=== PATIENT | male | born 1945 | race African-American/Black ===

== ENCOUNTER 2021-04-13 07:04 | Day surgery (SDC) | payer SELFPAY ==
--- NOTE | 2021-04-13 07:31 | ECHOD_ITS ---
Version 2 Reason For Study: SOB Procedure This was a 2D Doppler, Color Flow transthoracic echocardiogram. Myocardial strain analysis was performed in this exam to aid in the assessment of cardiac function. Exam performed in department. Left Ventricle Normal LV size. Severe concentric left ventricular hypertrophy. Left ventricular systolic function is normal. The estimated ejection fraction is 60 %. No regional wall motion abnormalities noted. Right Ventricle Normal RV size. Normal systolic function. Atria The left atrium is moderately enlarged. Normal right atrium. Mitral Valve Normal mitral valve. Mild-Moderate (1-2+) eccentric mitral valve insufficiency. Tricuspid Valve Normal tricuspid valve. Aortic Valve Normal aortic valve. Trisinus/trileaflet aortic valve. Pulmonic Valve Normal pulmonic valve. Great Vessels Mildly dilated aortic root. The pulmonary artery is normal size. Normal inferior vena cava. Pericardium/Pleural No pericardial effusion. MMode/2D Measurements & Calculations LVIDd: 4.2 cm IVSd: 1.7 cm Ao root diam: 4.1 cm LVIDs: 2.7 cm LVPWd: 1.7 cm RVDd: 3.7 cm FS: 36.4 % LAV(MOD-bp): 95.2 ml LVAd ap4: 29.3 cm2 LVAd ap2: 31.5 cm2 LAV(MOD-bp) Indexed: 38.7 ml/m2 LVLd ap4: 9.7 cm LVLd ap2: 9.9 cm LAV(MOD-sp2): 92.1 ml EDV(MOD-sp4): 76.4 ml EDV(MOD-sp2): 85.1 ml LAV(MOD-sp4): 100.8 ml EDV(sp4-el): 75.3 ml EDV(sp2-el): 85.3 ml LVAs ap4: 18.2 cm2 LVAs ap2: 18.2 cm2 LVLs ap4: 8.8 cm LVLs ap2: 9.1 cm ESV(MOD-sp4): 36.2 ml ESV(MOD-sp2): 32.4 ml ESV(sp4-el): 31.9 ml ESV(sp2-el): 31.0 ml EF(MOD-sp4): 52.7 % EF(MOD-sp2): 61.9 % EF(sp4-el): 57.7 % SV(MOD-sp4): 40.2 ml SV(MOD-sp2): 52.7 ml SV(sp4-el): 43.4 ml LA dimension(2D): 4.3 cm LA A4 area: 28.5 cm2 RA A4 area: 17.1 cm2 Doppler Measurements & Calculations MV E max johnny: 79.0 cm/sec Lat Peak E' Johnny: 6.5 cm/sec Med Peak E' Johnny: 3.9 cm/sec MV A max johnny: 44.6 cm/sec E/E' lat: 12.2 E/E' med: 20.4 MV E/A: 1.8 Ao V2 max: 114.8 cm/sec LV V1 max: 106.0 cm/sec PA V2 max: 96.1 cm/sec Ao max P.3 mmHg LV V1 max P.5 mmHg ECHO/Echo Complete Interpretation Summary Normal LV size. Severe concentric left ventricular hypertrophy. Left ventricular systolic function is normal. The estimated ejection fraction is 60 %. Significant apical sparing noted on the longitudinal strain pattern consistent with amyloid cardiomyopathy Mild-Moderate (1-2+) eccentric mitral valve insufficiency. The left atrium is moderately enlarged. The global longitudinal strain is moderately abnormal. The global longitudinal strain = -14.3% (abnormal). Ordering Physician: Stanislav Lawler Referring Physician: Stanislav Lawler Performed By: Julita May, THOMAS
--- NOTE | 2021-04-13 07:31 | RAD_ITS ---
STUDY: X-RAY CHEST REASON FOR EXAM: Male, 75 years old. Chest pain, shortness of breath, hypertension TECHNIQUE: PA and lateral views of the chest. COMPARISON: None. FINDINGS: Lungs are mildly hyperexpanded with coarsened interstitial lung markings but no airspace consolidation. There is no demonstrated pleural abnormality. Normal size heart. Normal mediastinum and delon. Normal visualized pulmonary arteries. Normal visualized aortic arch and descending thoracic aorta. There are diffuse degenerative changes of the visualized thoracic spine. Normal visualized ribs, clavicles, and shoulders. There is no demonstrated abnormality of the visualized soft tissue structures of the upper abdomen. RAD/Chest PA and Lateral IMPRESSION: No airspace consolidation or pleural effusion. Electronically Signed: Eliecer Gregg MD ([place]) at 16:49 EDT , Service support ,
[2021-04-13 07:37] LABS: Absolute Lymphocyte Count 3.27 X10^3/uL (0.83-4.51); Absolute Neutrophil Count 1.2 X10^3/uL (2.0-7.7); Basophil# 0.02 X10^3/uL; Basophil% 0.4 % (0-1); Eosinophil# 0.14 X10^3/uL; Eosinophils% 2.7 % (0-5); Hematocrit 46.1 % (40-54); Hemoglobin 14.4 g/dL (13.0-16.5); Lymphocyte # 3.27 X10^3/ul (0.83-4.51); Lymphocyte % 64.1 % (19-41); Mean Corp Hgb Conc 31.2 g/dL (32-36); Mean Corpuscular Hgb 26.3 pg (27.0-32.0); Mean Corpuscular Volume 84.3 fL (80-94); Mean Platelet Vol. 12.3 fl (6.2-12.0); Monocyte# 0.44 X10^3/uL; Monocyte% 8.6 % (0-10); NRBC Flagged by Analyzer 0 % (0-5); Neutrophil # 1.23 X10^3/uL (2.7-7.7); Neutrophil % 24.2 % (47-70); POSITIVE MORPHOLOGY YES; Platelet Count 133 K/mm3 (150-450); RBC Distribution Width CV 13.8 % (11.6-14.6); RBC Distribution Width SD 42.6 fl (35.1-43.9); Red Blood Count 5.47 M/mm3 (4.6-6.2); White Blood Count 5.1 K/mm3 (4.4-11.0)
[2021-04-13 07:40] LABS: Differential Indicated SCAN CRITERIA MET
[2021-04-13 08:02] LABS: Anion Gap 4 (5-15); BUN 12 mg/dL (7-18); BUN/Creat Ratio 11.8 RATIO (10-20); Calcium,Total 8.8 mg/dL (8.5-10.1); Chloride 110 mmol/L (98-107); Creatinine, Serum 1.02 mg/dL (0.70-1.30); EST Glomerular Filtration Rate 76 mL/min (>60); Est Glom Filt Rate - Afr Amer 92 mL/min (>60); Glucose 111 mg/dL (74-106); Sodium Level 140 mmol/L (136-145); Thyroid Stim Hormone (TSH) 3.35 uIU/mL (0.358-3.74)
[2021-04-13 08:19] LABS: Platelet Estimate SLT DEC (ADEQ); Red Cell Morphology NORM C+C NORMAL (NORM C&C)
[2021-04-13 10:14] VITALS: BMI 29.1
--- NOTE | 2021-04-13 12:18 | CL.D_ITS ---
Patient Name: BESSY JONES Study Date: 04/13/2021 Performing: Stanislav Lawler MD Ht: 77.16 inches 196 cm : 1945 Wt: 246.92 lbs 112 kg Age: 75 Gender: male BSA: 2.45 PROCEDURE(S) PERFORMED [id number]/COR/LV CLINICAL PROFILE AND INDICATIONS Indications: Suspected CAD Heart Failure: NYHA Class: 2, Newly Diagnosed: Yes, Heart Failure Type: Diastolic Stress/Imaging Stress/Image Study Performed: No CAD Presentations: Symptom unlikely to be ischemic. CONCLUSIONS No significant obstructive coronary disease; preserved left ventricular systolic function; normal lef t ventricular end-diastolic pressures RECOMMENDATIONS Medical therapy DESCRIPTION OF PROCEDURE The patient arrived to the procedure lab. The risks and benefits of the procedure as well as a full d escription of our services here and current unavailability of surgical backup were fully explained to the patient and/or their significant other prior to the catheterization. The Timeout was completed, verifying the correct patient and procedure. The patient's procedural site was prepped and draped in the usual fashion. Local anesthetic was given subcutaneously to right radial region with Lidocaine 2% . Using a modified Seldinger technique, arterial access was obtained via the right radial artery, a 6 Fr sheath was inserted. Left Coronary Artery selective angiography was performed in multiple views u sing a 5 Fr. 4.0 [place] catheter. Right Coronary Artery selective angiography was then performed in mu ltiple views using a 6 Fr. JR 4 catheter 125 cm. Left Ventriculography was performed in MARADIAGA projectio n using a 5 Fr. Pigtail catheter. LV to AO pullback pressures were then recorded.The arterial sheath was pulled and a TR Band was applied for hemostasis CORONARY ANGIOGRAPHY DOMINANCE: Right Dominant LEFT HEART ASSESSMENT Normal Left Ventricular systolic function LEFT MAIN: Angiographically normal LEFT ANTERIOR DESCENDING ARTERY: Angiographically normal DIAGONAL 1: Proximal - 60 % Stenosis CIRCUMFLEX ARTERY: Angiographically normal RIGHT CORONARY ARTERY: Angiographically normal COMPLICATIONS No Complications PROCEDURE MEDICATIONS Versed 1 mg IV Fentanyl 50 mcg IV Oxygen: 2 L/min via nasal cannula Heparin given IA 04/13/2021 11:56:14 Verapamil 2.5mg, Ntg 100mcgs, 3000 units of Heparin given IA 04/13/2021 11:56:14 SUMMARY OF HEMODYNAMIC DATA Time AIR REST ECG 09:47:38 AO 96/60 (76) SA 11:56:40 LV 88/0, 10 12:08:34 LV 90/0, 9 12:08:41 LV 91/2, 12 12:09:27 LV 92/2, 11 12:09:35 LVp 89/1, 11 12:09:43 AOp 97/58 (75) 12:09:48 Signed By Stanislav Lawler MD On 04/13/2021 12:17:44 PM Stanislav Lawler MD
[2021-04-15 14:09] LABS: Albumin 3.7 g/dL (2.9-4.4); Albumin, Ur 34.7 % (.); Alpha-1-Globulin, Ur 7.4 % (.); Alpha-1-Globulins 0.2 g/dL (0.0-0.4); Alpha-2-Globulins 0.7 g/dL (0.4-1.0); Alpha-2-Globulins, Ur 16.9 % (.); Beta Globulin, Ur 16.7 % (.); Free Kappa Light Chains 35.6 mg/L (3.3-19.4); Gamma Globulin 1.4 g/dL (0.4-1.8); Gamma Globulin, Ur 24.3 % (.); Immunoglobulin A 163 mg/dL (61-437); Immunoglobulin G 1268 mg/dL (603-1613); Immunoglobulin M 183 mg/dL (15-143); M-Spike, Ur % Not Observed % (Not Observed); PROEL- TOTAL PROTEIN 6.8 g/dL (6.0-8.5)
[2021-04-15 18:25] LABS: Total Protein, Ur < 4.0 mg/dL (Not Estab.)
== END 2021-04-13 14:15 | disposition home or self-care (01) ==
PROVIDERS: Referring Provider Internal Medicine Cardiovascular Disease; Visit Provider Internal Medicine Cardiovascular Disease
DX: R06.00 Dyspnea, unspecified (principal); R07.9 Chest pain, unspecified; J90 Pleural effusion, not elsewhere classified; E66.9 Obesity, unspecified; I50.32 Chronic diastolic (congestive) heart failure; I26.99 Other pulmonary embolism without acute cor pulmonale; I11.0 Hypertensive heart disease with heart failure; E85.4 Organ-limited amyloidosis; E11.9 Type 2 diabetes mellitus without complications; E78.5 Hyperlipidemia, unspecified; I43 Cardiomyopathy in diseases classified elsewhere; Z86.16 Personal history of COVID-19
CPT/HCPCS: 36415; 71046; 80048; 82784; 83883; 84165; 84166; 84443; 85025; 86334; 86335; 93306; 93458; 99152; 99153; J7040; Q9967; C1769; C1894; J1940